=== PATIENT | male | born 1955 | race African-American/Black ===

== ENCOUNTER 2019-02-15 02:43 | Emergency (ER) | payer MEDICARE ==
[~2019-02-15] VITALS: Ht 182.9 cm; Wt 102.0 kg
[2019-02-15 06:25] LABS: BASOPHILS % 0.7 % (0.0-2.0); EOSINOPHILS % 2.7 % (0.0-5.0); HEMATOCRIT. 40.1 % (42.0-52.0); HEMOGLOBIN. 13.2 g/dL (14.0-18.0); LYMPHOCYTES % 17.9 % (20.0-50.0); MEAN CORPUSCULAR HEMOGLOBIN 29.8 pg (28.0-32.0); MEAN CORPUSCULAR VOLUME 90.7 fL (80.0-94.0); MEAN PLATELET VOLUME 6.9 fl (7.4-10.4); MONOCYTES % 14.4 % (2.0-8.0); NEUTROPHILS % 64.3 % (40.0-76.0); PLATELET 259 x1000/uL (130-400); RED BLOOD CELL COUNT 4.42 mill/uL (4.7-6.1); RED CELL DISTRIBUTION WIDTH 14.5 % (11.6-14.6)
[2019-02-15 06:32] LABS: CHLORIDE 108 mEq/L (98-107)
[2019-02-15 06:36] LABS: PARTIAL THROMBOPLASTIN TIME 32.3 sec (23.4-31.0); PROTHROMBIN TIME 10.3 sec (9.6-11.0)
[2019-02-15] MEDS ORDERED: KETOROLAC 15MG/ML VIAL IV ONE (06:45)
[2019-02-15] MEDS ORDERED: DEXAMETHASONE 10 MG/ML VIAL IV ONE (06:45)
[2019-02-15 08:52] VITALS: BP 128/74
== END 2019-02-15 10:02 | disposition home or self-care (01) ==
LOC: ER 02:43
DX: J06.9 Acute upper respiratory infection, unspecified (principal); I10 Essential (primary) hypertension; E11.9 Type 2 diabetes mellitus without complications; Z85.46 Personal history of malignant neoplasm of prostate
CPT/HCPCS: 36415; 71045; 80053; 83880; 84484; 85025; 85610; 85730; 87804; 93005; 96374; 96375; 99284; J1100; J1885